=== PATIENT | male | born 2000 | race African-American/Black ===

== ENCOUNTER 2019-09-03 21:14 | Emergency (ER) | payer SELFPAY ==
[2019-09-03] MEDS ORDERED: Proparacaine 0.5% Opth 15 ML BOT ONE (21:57)
[2019-09-03] MEDS ORDERED: Fluorescein Opthalmic Strip ONE (21:57)
[2019-09-03] MEDS ORDERED: Nitrazine Tape 1 ROLL ONE ×2 (22:00→22:01)
== END 2019-09-03 22:32 | disposition home or self-care (01) ==
LOC: ERS 21:14
DX: Z77.098 Contact with and (suspected) exposure to other hazardous, chiefly nonmedicinal, chemicals (principal); X58.XXXA Exposure to other specified factors, initial encounter
CPT/HCPCS: 99283